=== PATIENT | male | born 1950 | race Caucasian/White ===

== ENCOUNTER 2019-05-12 17:34 | Inpatient (IN) | payer OTHER ==
[~2019-05-12] VITALS: Ht 180.3 cm; Wt 52.1 kg
--- NOTE | 2019-05-12 18:38 | NUR ---
No detectable dorsalis pedis or posterior tibial pulse detected by doppler by two different nurses. Dr. Dockery notified.
[2019-05-12] MEDS ORDERED: morphine 2 MG/ML inj. syringe IV PRN (19:05)
[2019-05-12 19:38] LABS: BASOPHILS # (AUTO) 0.1 X10'3 (0-0.2); BASOPHILS % (AUTO) 0.8 % (0-1); EOSINOPHILS # (AUTO) 0.2 X10'3 (0-0.9); EOSINOPHILS % (AUTO) 2.5 % (0-6); HEMATOCRIT 34.7 % (42.0-52.0); HEMOGLOBIN 11.7 g/dl (14.0-17.9); LYMPHOCYTES # (AUTO) 1.4 X10'3 (1.1-4.8); LYMPHOCYTES % (AUTO) 14.8 % (21-51); MEAN CORPUSCULAR HEMOGLOBIN 31.1 PG (27.0-31.0); MEAN CORPUSCULAR HGB CONC 33.7 g/dL (33.0-36.5); MEAN CORPUSCULAR VOLUME 92.3 FL (78-98); MEAN PLATELET VOLUME 10.3 FL (7.4-10.4); MONOCYTES # (AUTO) 0.6 X10'3 (0-0.9); MONOCYTES % (AUTO) 6.4 % (2-12); NEUTROPHILS # (AUTO) 7.1 X10'3 (1.8-7.7); NEUTROPHILS % (AUTO) 75.5 % (42-75); PLATELET COUNT 128 X10'3 (140-440); RED BLOOD COUNT 3.76 X10'6 (4.70-6.10); WHITE BLOOD COUNT 9.4 X10'3 (4.5-11.0)
[2019-05-12 19:47] LABS: PARTIAL THROMBOPLASTIN TIME 27 SECONDS (22-32)
[2019-05-12 19:51] LABS: ALANINE AMINOTRANSFERASE 10 U/L (12-78); ALBUMIN 3.2 G/DL (3.4-5.0); ALBUMIN/GLOBULIN RATIO 0.9 (1.1-1.5); ALKALINE PHOSPHATASE 97 IU/L (46-116); ANION GAP 9 (8-16); ASPARTATE AMINO TRANSFERASE 18 U/L (10-37); BILIRUBIN,TOTAL 0.7 MG/DL (0.1-1.0); BLOOD UREA NITROGEN 16 MG/DL (7-18); CALCIUM 9.2 MG/DL (8.5-10.1); CHLORIDE 105 MMOL/L (99-107); CREATININE 1.33 MG/DL (0.60-1.10); GLUCOSE 98 MG/DL (70-104); POTASSIUM 4.1 MMOL/L (3.5-5.1); SODIUM 139 MMOL/L (135-145); TOTAL CARBON DIOXIDE 25.4 MMOL/L (24-32); TOTAL PROTEIN 6.8 G/DL (6.4-8.2); eGFR 53 ML/MIN
--- NOTE | 2019-05-12 21:00 | NUR ---
Spoke to Dr. Dockery about lactic acid level and possible need for fluids. She states she will re-evaluate the patient and place orders if necessary.
--- NOTE | 2019-05-12 21:18 | NUR ---
sewing pattern layout technician at bedside .
[2019-05-12] MEDS ORDERED: heparin 10,000 units/1 ML INJ IV ONE (22:25)
[2019-05-12] MEDS ORDERED: OXYC-658 PO (22:26)
[2019-05-12] MEDS ORDERED: OMEP40CA13 PO (22:26)
[2019-05-12] MEDS ORDERED: ATEN-169 PO (22:26)
[2019-05-12] MEDS ORDERED: iohexol 350MG/ML 100ml bottle IV ONE (22:32)
[2019-05-12] MEDS: heparin 25,000 UNIT/250ml bag 250 ML IV SCH (22:47)
--- NOTE | 2019-05-12 22:51 | NUR ---
Pt en route to CT via w/c.
--- NOTE | 2019-05-13 00:08 | NUR ---
Per Dr. Johnson, will re-eval for pt to eat depending on CT results. Pt updated on plan of care. No acute distress noted.
[2019-05-13] MEDS ORDERED: normal saline 1000ML IV soln IVB ONE (00:45)
[2019-05-13] MEDS ORDERED: heparin 10,000 units/1 ML INJ IV PRN (01:20)
[2019-05-13] MEDS ORDERED: magnesium hydroxide 30ml (MOM) UD suspension PO PRN (01:20)
[2019-05-13] MEDS ORDERED: acetaminophen 325mg tablet PO PRN ×2 (01:20)
[2019-05-13] MEDS ORDERED: mag hydrox/Alum hydrox/simeth 30ml oral suspension PO PRN (01:20)
[2019-05-13] MEDS ORDERED: ondansetron/PF 4mg/2ml inj IV PRN (01:20)
[2019-05-13] MEDS ORDERED: heparin 25,000 UNIT/250ml bag 250 ML IV SCH (01:20)
--- NOTE | 2019-05-13 02:17 | NUR ---
No additional troponins per Dr. Johnson. Troponins cancelled.
[2019-05-13] MEDS: oxyCODONE IR 5mg (immed. release) tablet PO PRN ×3 (03:26→19:22)
[2019-05-13 03:52] VITALS: BP 139/97
[2019-05-13 05:59] LABS: BASOPHILS # (AUTO) 0.2 X10'3 (0-0.2); HEMATOCRIT 32.5 % (42.0-52.0); LYMPHOCYTES # (AUTO) 1.3 X10'3 (1.1-4.8); MEAN CORPUSCULAR HGB CONC 33.7 g/dL (33.0-36.5); MONOCYTES # (AUTO) 0.7 X10'3 (0-0.9)
[2019-05-13 06:03] LABS: BASOPHILS % (AUTO) 1.8 % (0-1); EOSINOPHILS # (AUTO) 0.2 X10'3 (0-0.9); EOSINOPHILS % (AUTO) 1.8 % (0-6); LYMPHOCYTES % (AUTO) 13.4 % (21-51); MEAN PLATELET VOLUME 11.1 FL (7.4-10.4); MONOCYTES % (AUTO) 7.2 % (2-12); NEUTROPHILS # (AUTO) 7.1 X10'3 (1.8-7.7); NEUTROPHILS % (AUTO) 75.8 % (42-75); PLATELET COUNT 124 X10'3 (140-440); RED BLOOD COUNT 3.53 X10'6 (4.70-6.10); WHITE BLOOD COUNT 9.3 X10'3 (4.5-11.0)
--- NOTE | 2019-05-13 06:16 | NUR ---
Problems reprioritized. Patient report given, questions answered & plan of care reviewed with MUMTAZ Mcallister. Addendum: 05/13/19 at 0617 by Clari Flores RN Amended: Links added.
--- NOTE | 2019-05-13 06:16 | NUR ---
Patient in room [facility] 349. I have received report from MUMTAZ Montague and had the opportunity to ask questions and assume patient care.
--- NOTE | 2019-05-13 06:40 | NUR ---
Patient in room [facility] 349. I have received report from Clari and had the opportunity to ask questions and assume patient care.
--- NOTE | 2019-05-13 06:47 | NUR ---
Heparin gtt turned off. Will resume in 120mins at a decreased rate per protocol. Dr. Godinez notified.
[2019-05-13 07:00] VITALS: BP_SYST 100; BP_SYST 189; BP_DIAS 129; BP_DIAS 44
--- NOTE | 2019-05-13 07:04 | NUR ---
Pt blood pressure at 0700 was 189/129. Pt has not taken BP med since he has been admitted. called [facility]. In the ER he was in his 130's and 140's. Pt was was not in distress, had no complains of pain and went back to sleep after vital signs were taken. Dr. Johnson said that he would change his BP dosage for the day and was not concern since his BP is a chronic issue and not acute.
[2019-05-13 07:06] LABS: LARGE PLATELETS FEW; PLATELET ESTIMATE DECREASED
[2019-05-13] MEDS: normal saline 1000ml 1,000 ML IV SCH ×3 (08:28→20:33)
[2019-05-13] MEDS: pantoprazole 40mg Tablet.DR PO SCH (08:29)
[2019-05-13] MEDS: aspirin 81mg tablet.DR PO SCH (08:29)
[2019-05-13] MEDS: atorvastatin 20mg tablet PO SCH (08:29)
[2019-05-13] MEDS: heparin 25,000 UNIT/250ml bag 250 ML IV SCH ×2 (08:56→13:32)
--- NOTE | 2019-05-13 08:59 | NUR ---
heparin drip resumed at 400 units/hr. Will recheck aPTT in 2 hours.
--- NOTE | 2019-05-13 10:57 | NUR ---
Spoke to Dr. Murray to clarify order for PTT. Dr. Murray wants DVT PTT ordered or not Cardiac PTT.
[2019-05-13] MEDS ORDERED: metoprolol tartrate 1mg/ml inj IV PRN (12:45)
[2019-05-13] MEDS ORDERED: nitroGLYCERIN 0.4mg SUBLingual tab SL PRN (12:45)
[2019-05-13] MEDS ORDERED: regadenoson 0.4mg/5ml syringe IV PRN (12:45)
[2019-05-13] MEDS ORDERED: heparin 10,000 units/1 ML INJ IV ONE (12:45)
[2019-05-13] MEDS ORDERED: aminophylline 250mg/10ml inj. IV PRN (12:45)
[2019-05-13 12:46] VITALS: BP 128/91
[2019-05-13] MEDS: heparin 10,000 units/1 ML INJ IV PRN (13:30)
--- NOTE | 2019-05-13 14:18 | NUR ---
Pt with low BMI of 16.3 seen at bedside. Pt reports UBW 120 lbs, current documented wt is 117 lbs. Pt currently 98% UBW. Pt states his weight fluctuates and doesn't express concern for any recent wt loss at this time. Pt endorses a good appetite, currently on heart healthy diet documented with 25% PO intake at breakfast this morning. Breakfast tray present during RD visited, noted that pt consumed all of the eggs and most of the sides except for Slovenian toast, likely more than 25% consumed. Patient with evident muscle wasting in clavicle area, no significant decrease in muscle strength, and no edema. Pt currently does not meet criteria for malnutrition. Pt requests more seasoning to add flavor to food, pt agrees to salsa with breakfast and extra seasoning packets TID. Pt also agrees to cottage cheese with dinners, double eggs at breakfast, and double meat BIDLD and states he dislikes peas. All food preferences d/t dietary. Pt provided with written alternative heart healthy menu to provide additional food options and RD contact information. Will remain available. Addendum: 05/13/19 at [address] Amended: Links added.
--- NOTE | 2019-05-13 17:48 | NUR ---
Student documentation: I have reviewed and agree with all interventions, assessments performed and documented by Sn Mark Student Medication Administration: For this medication-pass time frame, all medication were reviewed, dispensed, administered and documented per hospital policy by SN Mark.
--- NOTE | 2019-05-13 18:11 | NUR ---
Received report from MUMTAZ Mcallister. Patient is awake and alert on room air, in no apparent distress. Call light and items of frequent use within reach. Will continue to monitor.
--- NOTE | 2019-05-13 18:35 | NUR ---
Problems reprioritized. Patient report given, questions answered & plan of care reviewed with Mariia.
[2019-05-13 20:00] VITALS: BP 146/89
[2019-05-13] MEDS: atenolol 25mg tablet PO SCH (20:31)
--- NOTE | 2019-05-13 20:48 | NUR ---
PTT result came back to be 52 seconds. No rate change needed.
[2019-05-14] VITALS (12 sets, daily range): BP systolic 143–180; BP diastolic 84–129
[2019-05-14 02:11] LABS: BASOPHILS # (AUTO) 0.2 X10'3 (0-0.2); EOSINOPHILS # (AUTO) 0.3 X10'3 (0-0.9); MEAN PLATELET VOLUME 10.4 FL (7.4-10.4); MONOCYTES # (AUTO) 0.8 X10'3 (0-0.9); WHITE BLOOD COUNT 9.3 X10'3 (4.5-11.0)
[2019-05-14 02:13] LABS: BASOPHILS % (AUTO) 2.6 % (0-1); EOSINOPHILS % (AUTO) 2.8 % (0-6); HEMATOCRIT 34.4 % (42.0-52.0); HEMOGLOBIN 11.7 g/dl (14.0-17.9); LYMPHOCYTES # (AUTO) 1.8 X10'3 (1.1-4.8); MEAN CORPUSCULAR HEMOGLOBIN 31.2 PG (27.0-31.0); MEAN CORPUSCULAR HGB CONC 34.2 g/dL (33.0-36.5); MEAN CORPUSCULAR VOLUME 91.4 FL (78-98); MONOCYTES % (AUTO) 8.3 % (2-12); NEUTROPHILS # (AUTO) 6.2 X10'3 (1.8-7.7); NEUTROPHILS % (AUTO) 67.3 % (42-75); PLATELET COUNT 120 X10'3 (140-440); RED BLOOD COUNT 3.76 X10'6 (4.70-6.10); RED CELL DISTRIBUTION WIDTH 16.9 % (11.5-14.5)
[2019-05-14 02:22] LABS: ALBUMIN 2.8 G/DL (3.4-5.0); ANION GAP 7 (8-16); BLOOD UREA NITROGEN 13 MG/DL (7-18); BUN/CREATININE RATIO 12.5 (5.4-32.0); CALCIUM 8.9 MG/DL (8.5-10.1); CHLORIDE 107 MMOL/L (99-107); CHOL/HDL RATIO 1.6 (0.00-4.99); CHOLESTEROL 88 MG/DL (0-200); CREATININE 1.04 MG/DL (0.60-1.10); GLUCOSE 106 MG/DL (70-104); HDL CHOLESTEROL 56 MG/DL (35-60); LDL CHOLESTEROL 31 MG/DL (50-100); POTASSIUM 4.3 MMOL/L (3.5-5.1); SODIUM 136 MMOL/L (135-145); TOTAL CARBON DIOXIDE 22.5 MMOL/L (24-32); TRIGLYCERIDES 31 MG/DL (20-135); eGFR 70 ML/MIN
[2019-05-14] MEDS: normal saline 1000ml 1,000 ML IV SCH ×3 (02:23→17:20)
[2019-05-14] MEDS: heparin 10,000 units/1 ML INJ IV PRN ×2 (02:31→20:40)
[2019-05-14] MEDS: heparin 25,000 UNIT/250ml bag 250 ML IV SCH ×2 (02:35→20:39)
[2019-05-14 02:38] LABS: TOTAL CELLS COUNTED 100
[2019-05-14 02:39] LABS: ANISOCYTOSIS 1+; BURR CELLS 1+; ELLIPTOCYTES 1+; PLATELET ESTIMATE DECREASED
[2019-05-14] MEDS: oxyCODONE IR 5mg (immed. release) tablet PO PRN ×3 (02:55→18:18)
--- NOTE | 2019-05-14 06:40 | NUR ---
Patient in room [facility] 349. I have received report from Mariia and had the opportunity to ask questions and assume patient care.
[2019-05-14] MEDS: aspirin 81mg tablet.DR PO SCH (08:00)
[2019-05-14] MEDS: atorvastatin 20mg tablet PO SCH (08:02)
[2019-05-14] MEDS: pantoprazole 40mg Tablet.DR PO SCH (08:02)
[2019-05-14] MEDS ORDERED: midazolam 2 mg/2 ml injection ONE ×2 (09:09→09:57)
[2019-05-14] MEDS ORDERED: LIDOcaine 1%/PF 5ML 10 MG/ML VIAL ONE (09:09)
[2019-05-14] MEDS ORDERED: heparin 1,000 UNITS/NS 500ml 500 ML ONE (09:10)
[2019-05-14] MEDS ORDERED: fentaNYL/PF 50MCG/1 ML 2ML syringe ONE ×2 (09:10→09:57)
[2019-05-14] MEDS ORDERED: iohexol 300mg/ml 100ml inj. ONE (09:10)
--- NOTE | 2019-05-14 09:33 | NUR ---
PATIENT DOWN TO IR.
--- NOTE | 2019-05-14 11:00 | NUR ---
Patient returned to room 349b with x2 staff via [employer]. Patient transferred back to bed . Left groin puncture site has dressing that has circled shadowing. Site is soft, no hematoma noted. Post procedure vitals initiated. Will continue to monitor. Addendum: 05/14/19 at 1336 by Ary Mendiola RN Patient returned to room with heparin gtt turned off. Per report from MUMTAZ Kirkland and MUMTAZ Galvez, Dr. Yost wanted to remain off for x8 hours, recheck ptt and then continue heparin gtt.
--- NOTE | 2019-05-14 11:00 | NUR ---
patient came back from . Puncture site has no sign of hematoma and it is soft. He is stable and is laying flat for 6 hours. Heparin drip has stopped. right foot doppler only found on post tibial. Left foot found pulse with doppler on post tibiaal and dorsalis pedis.
--- NOTE | 2019-05-14 14:56 | NUR ---
Unable to locate patient right posterior tibial pulse with doppler, this morning was able to. Patients right LE also cooler than was this morning. Dr. Murray called and paged. Notified IR RN, scot Galvez who stated she was unable to locate with doppler pulses to right posterior tibial and right dorsalis pedis for IR procedure as well, "it's not a change for us" and advised to notify Dr. Zhang. Dr. Zhang called and he stated to "have IR look at him." IR called again. Leonor and MARCELO Kirkland RN's came to floor with IR doppler and was able to located right posterior tibial pulse with doppler. Location marked with "x" DR Murray notified of this. Will continue to monitor.
--- NOTE | 2019-05-14 16:01 | NUR ---
Patient's BP 172/108. No BP meds due at this time. Dr. Murray notified.
[2019-05-14] MEDS ORDERED: hydrALAZINE 20mg/ml inj. IV ONE (16:35)
--- NOTE | 2019-05-14 18:13 | NUR ---
Problems reprioritized. Patient report given, questions answered & plan of care reviewed with Denise.
--- NOTE | 2019-05-14 18:21 | NUR ---
Problems reprioritized. Patient report given, questions answered & plan of care reviewed with MUMTAZ Jain.
--- NOTE | 2019-05-14 18:22 | NUR ---
Student documentation: I have reviewed and agree with all interventions, assessments performed and documented by SN Tania. Student Medication Administration: For this medication-pass time frame, all medication were reviewed, dispensed, administered and documented per hospital policy by sn tania.
--- NOTE | 2019-05-14 18:42 | NUR ---
Patient in room [facility] 349. I have received report from MUMTAZ Murry and had the opportunity to ask questions and assume patient care. Addendum: 05/14/19 at 1842 by Denise Burleson RN Amended: Links added.
[2019-05-14] MEDS: atenolol 25mg tablet PO SCH (20:45)
--- NOTE | 2019-05-14 23:34 | NUR ---
called Dr. Garcia with regards to patient high blood pressure, did not order anything and stated to f/u with day time hospitalist.
[2019-05-15] VITALS: BP 159/104
[2019-05-15 02:53] LABS: BASOPHILS # (AUTO) 0.2 X10'3 (0-0.2); BASOPHILS % (AUTO) 1.5 % (0-1); EOSINOPHILS # (AUTO) 0.2 X10'3 (0-0.9); HEMATOCRIT 36.3 % (42.0-52.0); HEMOGLOBIN 12.1 g/dl (14.0-17.9); LYMPHOCYTES % (AUTO) 16.1 % (21-51); MEAN CORPUSCULAR HEMOGLOBIN 30.8 PG (27.0-31.0); MEAN CORPUSCULAR HGB CONC 33.3 g/dL (33.0-36.5); MEAN CORPUSCULAR VOLUME 92.5 FL (78-98); MEAN PLATELET VOLUME 10.7 FL (7.4-10.4); MONOCYTES # (AUTO) 1.3 X10'3 (0-0.9); MONOCYTES % (AUTO) 10.4 % (2-12); NEUTROPHILS # (AUTO) 8.6 X10'3 (1.8-7.7); PLATELET COUNT 118 X10'3 (140-440); RED BLOOD COUNT 3.92 X10'6 (4.70-6.10); RED CELL DISTRIBUTION WIDTH 16.7 % (11.5-14.5); WHITE BLOOD COUNT 12.2 X10'3 (4.5-11.0)
[2019-05-15 03:03] LABS: ANION GAP 9 (8-16); CALCIUM 8.7 MG/DL (8.5-10.1); CHLORIDE 107 MMOL/L (99-107); CREATININE 1.25 MG/DL (0.60-1.10); GLUCOSE 121 MG/DL (70-104); POTASSIUM 4.5 MMOL/L (3.5-5.1); SODIUM 138 MMOL/L (135-145); TOTAL CARBON DIOXIDE 22.4 MMOL/L (24-32); eGFR 57 ML/MIN
[2019-05-15] MEDS: normal saline 1000ml 1,000 ML IV SCH ×5 (03:03→23:20)
[2019-05-15] MEDS: oxyCODONE IR 5mg (immed. release) tablet PO PRN ×3 (03:05→21:28)
[2019-05-15] MEDS: heparin 25,000 UNIT/250ml bag 250 ML IV SCH ×4 (03:07→09:23)
[2019-05-15 03:13] LABS: BLOOD UREA NITROGEN 14 MG/DL (7-18); BUN/CREATININE RATIO 11.2 (5.4-32.0)
[2019-05-15 03:44] LABS: LARGE PLATELETS FEW; PLATELET ESTIMATE DECREASED
[2019-05-15 06:30] VITALS: BP 129/81
--- NOTE | 2019-05-15 06:30 | NUR ---
Patient in room [facility] 349. I have received report from Padma Arauz RN and had the opportunity to ask questions and assume patient care.
--- NOTE | 2019-05-15 06:35 | NUR ---
Problems reprioritized. Patient report given, questions answered & plan of care reviewed with MUMTAZ MORALES. Addendum: 05/15/19 at 0635 by Denise Burleson RN Amended: Links added.
[2019-05-15 07:41] VITALS: BP 144/89
[2019-05-15] MEDS: aspirin 81mg tablet.DR PO SCH (07:59)
[2019-05-15] MEDS: atorvastatin 20mg tablet PO SCH (07:59)
[2019-05-15] MEDS: pantoprazole 40mg Tablet.DR PO SCH (07:59)
[2019-05-15] MEDS: HYDROcodone/acetaminophen 5mg/325mg tablet PO PRN (08:00)
[2019-05-15 08:01] LABS: ANISOCYTOSIS 1+
[2019-05-15] MEDS: heparin 10,000 units/1 ML INJ IV PRN (09:18)
[2019-05-15 11:00] VITALS: BP 156/95
--- NOTE | 2019-05-15 13:40 | NUR ---
Student documentation: I have reviewed all interventions, assessments performed and documented by .
[2019-05-15] MEDS ORDERED: nitroGLYCERIN 0.4mg SUBLingual tab SL PRN (14:00)
[2019-05-15] MEDS ORDERED: aminophylline 250mg/10ml inj. IV PRN (14:00)
[2019-05-15] MEDS ORDERED: metoprolol tartrate 1mg/ml inj IV PRN (14:00)
[2019-05-15] MEDS ORDERED: regadenoson 0.4mg/5ml syringe IV ONE (14:00)
[2019-05-15 18:00] VITALS: BP 177/113
--- NOTE | 2019-05-15 18:30 | NUR ---
Problems reprioritized. Patient report given, questions answered & plan of care reviewed with Scooter PANDYA.
--- NOTE | 2019-05-15 18:31 | NUR ---
Patient in room [facility] 349. I have received report from MUMTAZ Castillo and had the opportunity to ask questions and assume patient care.
[2019-05-15] MEDS: atenolol 25mg tablet PO SCH (21:28)
--- NOTE | 2019-05-15 22:57 | NUR ---
Patient's BP at 1800 was 177/113, pt was given scheduled atenolol. Upon recheck his BP was 135/100. The doctor was notified and does not wish to do anything at this time.
[2019-05-16] VITALS (15 sets, daily range): BP systolic 135–163; BP diastolic 98–121
[2019-05-16 02:46] LABS: BASOPHILS # (AUTO) 0.2 X10'3 (0-0.2); EOSINOPHILS # (AUTO) 0.2 X10'3 (0-0.9); EOSINOPHILS % (AUTO) 2.5 % (0-6); HEMATOCRIT 33.3 % (42.0-52.0); HEMOGLOBIN 11.3 g/dl (14.0-17.9); LYMPHOCYTES # (AUTO) 1.7 X10'3 (1.1-4.8); LYMPHOCYTES % (AUTO) 20.7 % (21-51); MEAN CORPUSCULAR HEMOGLOBIN 30.8 PG (27.0-31.0); MEAN CORPUSCULAR HGB CONC 33.9 g/dL (33.0-36.5); MEAN CORPUSCULAR VOLUME 90.9 FL (78-98); MEAN PLATELET VOLUME 10.8 FL (7.4-10.4); MONOCYTES # (AUTO) 0.8 X10'3 (0-0.9); MONOCYTES % (AUTO) 9.5 % (2-12); NEUTROPHILS # (AUTO) 5.4 X10'3 (1.8-7.7); NEUTROPHILS % (AUTO) 65.3 % (42-75); PLATELET COUNT 110 X10'3 (140-440); RED BLOOD COUNT 3.66 X10'6 (4.70-6.10); RED CELL DISTRIBUTION WIDTH 16.6 % (11.5-14.5); WHITE BLOOD COUNT 8.3 X10'3 (4.5-11.0)
[2019-05-16 02:56] LABS: ALBUMIN 2.7 G/DL (3.4-5.0); ANION GAP 8 (8-16); BLOOD UREA NITROGEN 17 MG/DL (7-18); BUN/CREATININE RATIO 14.2 (5.4-32.0); CALCIUM 9.1 MG/DL (8.5-10.1); CHLORIDE 106 MMOL/L (99-107); GLUCOSE 96 MG/DL (70-104); POTASSIUM 4.3 MMOL/L (3.5-5.1); SODIUM 137 MMOL/L (135-145); TOTAL CARBON DIOXIDE 23.5 MMOL/L (24-32); eGFR 60 ML/MIN
[2019-05-16] MEDS: normal saline 1000ml 1,000 ML IV SCH ×5 (05:30→22:45)
--- NOTE | 2019-05-16 06:00 | NUR ---
Patient in room [facility] 349. I have received report from Scooter PANDYA and had the opportunity to ask questions and assume patient care.
--- NOTE | 2019-05-16 06:27 | NUR ---
Problems reprioritized. Patient report given, questions answered & plan of care reviewed with MUMTAZ Aponte.
[2019-05-16] MEDS: atorvastatin 20mg tablet PO SCH (07:25)
[2019-05-16] MEDS: pantoprazole 40mg Tablet.DR PO SCH (07:25)
[2019-05-16] MEDS: oxyCODONE IR 5mg (immed. release) tablet PO PRN ×3 (07:27→22:43)
[2019-05-16] MEDS: aspirin 81mg tablet.DR PO SCH (07:32)
--- NOTE | 2019-05-16 14:40 | NUR ---
Ramos LOPEZ regarding pt. stating he plans to go home after Mere-scan done. PAGER ID: [phone] MESSAGE: [phone]; Dwayne Colon. Pt. will be going to Mere-scan today. Pt. states he plans on going home right after Mere-scan procedure is complete. Pls. advise. Maribel [phone]
--- NOTE | 2019-05-16 14:41 | NUR ---
MD advised to ask pt. if he is willing to wait for stress test result so that appropriate medications can be prescribed if patient still chooses to go home after jose-scan is complete. Will follow up.
--- NOTE | 2019-05-16 14:45 | NUR ---
Follow up with MD regarding patient response. PAGER ID: [phone] MESSAGE: [phone]; Brooke Colon Pt. willing to wait for stress test results and new prescriptions then would like to be DC'd home. Is a [facility] patient GISELA López [phone]
[2019-05-16] MEDS ORDERED: aminophylline inj. 10 ML IV ONE (15:05)
--- NOTE | 2019-05-16 18:54 | NUR ---
Problems reprioritized. Patient report given, questions answered & plan of care reviewed with Prudence RN.
[2019-05-16] MEDS: heparin 25,000 UNIT/250ml bag 250 ML IV SCH (19:33)
[2019-05-16] MEDS: atenolol 25mg tablet PO SCH (21:28)
[2019-05-17] VITALS (15 sets, daily range): BP systolic 120–149; BP diastolic 84–100
[2019-05-17 01:54] LABS: BASOPHILS # (AUTO) 0.1 X10'3 (0-0.2); BASOPHILS % (AUTO) 1.6 % (0-1); EOSINOPHILS # (AUTO) 0.2 X10'3 (0-0.9); EOSINOPHILS % (AUTO) 2.5 % (0-6); HEMOGLOBIN 10.5 g/dl (14.0-17.9); LYMPHOCYTES # (AUTO) 1.6 X10'3 (1.1-4.8); LYMPHOCYTES % (AUTO) 17.4 % (21-51); MEAN CORPUSCULAR HEMOGLOBIN 31.2 PG (27.0-31.0); MEAN CORPUSCULAR HGB CONC 33.7 g/dL (33.0-36.5); MEAN CORPUSCULAR VOLUME 92.4 FL (78-98); MEAN PLATELET VOLUME 11.1 FL (7.4-10.4); MONOCYTES # (AUTO) 0.8 X10'3 (0-0.9); MONOCYTES % (AUTO) 8.6 % (2-12); NEUTROPHILS # (AUTO) 6.4 X10'3 (1.8-7.7); NEUTROPHILS % (AUTO) 69.9 % (42-75); PLATELET COUNT 101 X10'3 (140-440); RED BLOOD COUNT 3.36 X10'6 (4.70-6.10); RED CELL DISTRIBUTION WIDTH 16.5 % (11.5-14.5); WHITE BLOOD COUNT 9.2 X10'3 (4.5-11.0)
[2019-05-17 02:10] LABS: ALBUMIN 2.5 G/DL (3.4-5.0); ANION GAP 8 (8-16); BLOOD UREA NITROGEN 16 MG/DL (7-18); BUN/CREATININE RATIO 13.6 (5.4-32.0); CALCIUM 8.3 MG/DL (8.5-10.1); CHLORIDE 105 MMOL/L (99-107); CREATININE 1.18 MG/DL (0.60-1.10); GLUCOSE 110 MG/DL (70-104); POTASSIUM 3.9 MMOL/L (3.5-5.1); SODIUM 136 MMOL/L (135-145); TOTAL CARBON DIOXIDE 23.5 MMOL/L (24-32); eGFR 61 ML/MIN
[2019-05-17] MEDS: heparin 25,000 UNIT/250ml bag 250 ML IV SCH (02:27)
[2019-05-17] MEDS: oxyCODONE IR 5mg (immed. release) tablet PO PRN ×3 (03:04→19:55)
[2019-05-17] MEDS: normal saline 1000ml 1,000 ML IV SCH ×3 (05:20→19:36)
--- NOTE | 2019-05-17 06:30 | NUR ---
Problems reprioritized. Patient report given, questions answered & plan of care reviewed with Eduarda PANDYA.
[2019-05-17] MEDS: aspirin 81mg tablet.DR PO SCH (07:43)
[2019-05-17] MEDS: pantoprazole 40mg Tablet.DR PO SCH (07:46)
[2019-05-17] MEDS: atorvastatin 20mg tablet PO SCH (07:47)
--- NOTE | 2019-05-17 08:39 | NUR ---
No doppler pulses of right foot or tibia found on morning assessment. Dr Zhang notified, he was aware that this was an issue 2 days ago as well, so it is not a new problem. Foot is fairly warm, blanchable but purple in color with a slow cap refill. Dr Zhang was unsure if surgery would be safe for him and is not periodontist today so referred him to Dr Oneal who is oncall but also Dr Hurd for vascular back up. No new pain or discomfort per patient. I talked to Dr Oneal about the case and he referred me to Dr Hurd. Message left for Dr Hurd, awaiting call back.
[2019-05-17] MEDS ORDERED: LIDOcaine 1% (10mg/ml) 2ml vial ONE (11:33)
[2019-05-17] MEDS ORDERED: heparin 10,000 units/1 ML INJ ONE (11:33)
[2019-05-17] MEDS ORDERED: ceFOXitin 2 GM ADDvantage bag 100 ML IV ONE (11:55)
[2019-05-17] MEDS ORDERED: sevoflurane 250ml liquid IH ONE (11:56)
[2019-05-17] MEDS ORDERED: fentaNYL /PF 50mcg/ml 5ml ampule ONE (12:00)
[2019-05-17] MEDS ORDERED: midazolam 2 mg/2 ml injection ONE (12:00)
[2019-05-17] MEDS ORDERED: propofol inj 20 ML IV ONE (12:01)
[2019-05-17] MEDS ORDERED: rocuronium 10mg/ml inj IV ONE (12:01)
[2019-05-17] MEDS ORDERED: ceFAZolin 1000mg inj ONE ×2 (12:37)
[2019-05-17] MEDS ORDERED: ringers solution, lacted 1,000 ML IV SCH (13:12)
--- NOTE | 2019-05-17 13:14 | NUR ---
REPORT GIVEN TO ICU REEMA RN. UNABLE TO GET AHOLD OF RECOVERY ROOM FOR REPORT, WILL CONTINUE TO TRY. PT WAS TAKEN TO OR @ 1200. BLOOD SUGAR/BLOOD PRESSURE STABLE. DR SEGAL WAS ABLE TO ANSWER ALL QUESTIONS FOR PT BEFORE HE WAS TAKE TO OR.
[2019-05-17] MEDS ORDERED: morphine 4 MG/ML inj SYRINge IV PRN ×2 (13:15)
[2019-05-17] MEDS ORDERED: proCHLORperazine 10 MG/2 ml inj IV PRN (13:15)
[2019-05-17] MEDS ORDERED: ondansetron/PF 4mg/2ml inj IV PRN (13:15)
[2019-05-17] MEDS ORDERED: meperidine/PF 25mg/ml syringe IV PRN ×3 (13:15)
[2019-05-17] MEDS ORDERED: albumin (Human) 5% 250ml 250 ML IV ONE ×2 (13:44→15:07)
[2019-05-17] MEDS ORDERED: protamine sulfate 10mg/ml inj. ONE (15:25)
[2019-05-17] MEDS ORDERED: NORMAL SALINE IV ONE (16:00)
[2019-05-17] MEDS ORDERED: DESMOPRESSIN IV ONE (16:00)
[2019-05-17] MEDS ORDERED: heparin 1,000unit/ml 10ml vial 10 ML ONE (16:20)
--- NOTE | 2019-05-17 16:32 | NUR ---
Received from OR via ICU BED , accompanied by Anesthesiologist LAYLA and report given by Anesthesiolgist. PATIENT WITH 20G PIV IN LEFT UE. SL. TRIPLE LUMEN CENTRAL LINE TO RIGHT NECK. VSS AT THIS TIME. MARITA LUCAS UPON ARRIVAL. LUCIA CATH PRESENT AND ATTACHED TO TEMP PROBE. CLEAR YELLOW URINE PRESENT IN ATRIUM. 200CC. RIGHT AND LEFT INGUINAL DRESSINGS/ PROVENAS MAINTAINING SUCTION AND NO OBVIOUS SIGNS OF LEAKAGE. PATIENT MEDICATED UPON ARRIVAL BY ANESTHESIA. Addendum: 05/17/19 at 1659 by Carrington Osuna RN, RN Amended: Links added.
[2019-05-17] MEDS ORDERED: amiodarone 150mg/dext, iso-os 100 ML IV ONE (17:15)
--- NOTE | 2019-05-17 17:25 | NUR ---
ALL CRITERIA FOR TRANSFER TO THE FLOOR HAS BEEN ACHIEVED. VSS. BED LOW, CALL LIGHT AND VS. SET IN PLACE. RN PRESENT TO ACCEPT CARE. PATIENT RESTING COMFORTABLY IN BED. BELONGINGS SENT WITH PATIENT. DRESSINGS CDI. MUMTAZ FRASER PRESENT FOR REPORT AND TO CONTINUE CARE FOLLOWING REPORT. DRESSINGS STILL INTACT TO BILAT INGUINALS ARE. BLOOD GLUCOSE WNL. REPORTED TO RN AND SHE ASSUMED CARE OF PATIENT. WILL HANG AMIODARONE ORDERED AND CHECK MAG. Addendum: 05/17/19 at 1727 by Carrington Becerril - MUMTAZ PANDYA Amended: Links added.
--- NOTE | 2019-05-17 17:30 | NUR ---
REPORT FROM RECOVERY- PT ALREADY IN ROOM IN 2012. PT RESTLESS. SITTING UP- WANTING TO PEE- REORIENTED- AFTER MANY TRY, PT AWAKENING MORE AND LESS RESTLESS. CORDS REARRANGED- ART LINE READING IMPROVING, SATS WHEN READING 96 BY MASK. BEAR HUGGER ON TEMP 32, NOW UP TO 34. AMIO BOLUS AND GTT STARTED- HR AFIB 140 TO 80.
[2019-05-17] MEDS: amiodarone/D5 360MG/200ML BAG 200 ML IV SCH (17:34)
--- NOTE | 2019-05-17 18:30 | NUR ---
Patient in room CICU 2013. I have received report from MUMTAZ Girard and had the opportunity to ask questions and assume patient care.
[2019-05-17] MEDS ORDERED: magnesium 4gm in 100ml NS 100 ML IV ONE (19:30)
[2019-05-17] MEDS: ceFOXitin 2 GM ADDvantage bag 100 ML IV SCH (20:11)
[2019-05-17] MEDS: atenolol 25mg tablet PO SCH (21:47)
[2019-05-18] VITALS (25 sets, daily range): BP systolic 105–154; BP diastolic 68–97
[2019-05-18] MEDS: amiodarone/D5 360MG/200ML BAG 200 ML IV SCH ×5 (00:19→22:26)
[2019-05-18] MEDS: oxyCODONE IR 5mg (immed. release) tablet PO PRN ×5 (00:19→19:47)
--- NOTE | 2019-05-18 01:05 | NUR ---
Vital signs charted at 0105 is the second 0100 hour vitals of the night due to day light savings. Addendum: 05/18/19 at 0150 by Lida Durham RN As well as I/O
[2019-05-18] MEDS ORDERED: albumin (Human) 5% 250ml 250 ML IV ONE ×4 (01:30)
--- NOTE | 2019-05-18 01:33 | NUR ---
MD Hurd notified that patient has not made urine the last couple hours and only made 10 cc the hour before that. Patient was bladder scanned and no urine was found to be in the bladder. MD order a liter of 5% albumin, will give and reassess patient urine output status.
[2019-05-18] MEDS: ceFOXitin 2 GM ADDvantage bag 100 ML IV SCH ×4 (01:52→21:08)
[2019-05-18] MEDS: normal saline 1000ml 1,000 ML IV SCH ×2 (04:15→08:56)
[2019-05-18 04:48] LABS: BASOPHILS # (AUTO) 0.1 X10'3 (0-0.2); BASOPHILS % (AUTO) 0.8 % (0-1); EOSINOPHILS % (AUTO) 0.3 % (0-6); HEMATOCRIT 24.4 % (42.0-52.0); LYMPHOCYTES # (AUTO) 0.7 X10'3 (1.1-4.8); LYMPHOCYTES % (AUTO) 5.8 % (21-51); MEAN CORPUSCULAR HEMOGLOBIN 30.7 PG (27.0-31.0); MEAN CORPUSCULAR VOLUME 93.2 FL (78-98); MEAN PLATELET VOLUME 9.5 FL (7.4-10.4); MONOCYTES # (AUTO) 1.1 X10'3 (0-0.9); MONOCYTES % (AUTO) 9.5 % (2-12); NEUTROPHILS # (AUTO) 9.7 X10'3 (1.8-7.7); NEUTROPHILS % (AUTO) 83.6 % (42-75); PLATELET COUNT 125 X10'3 (140-440); RED BLOOD COUNT 2.62 X10'6 (4.70-6.10); RED CELL DISTRIBUTION WIDTH 17.1 % (11.5-14.5); WHITE BLOOD COUNT 11.6 X10'3 (4.5-11.0)
[2019-05-18 05:01] LABS: ALBUMIN 3.7 G/DL (3.4-5.0); ANION GAP 15 (8-16); BLOOD UREA NITROGEN 15 MG/DL (7-18); BUN/CREATININE RATIO 10.6 (5.4-32.0); CALCIUM 8.3 MG/DL (8.5-10.1); CHLORIDE 106 MMOL/L (99-107); CREATININE 1.41 MG/DL (0.60-1.10); GLUCOSE 114 MG/DL (70-104); SODIUM 137 MMOL/L (135-145); TOTAL CARBON DIOXIDE 16.2 MMOL/L (24-32); eGFR 50 ML/MIN
[2019-05-18] MEDS ORDERED: furosemide 40mg/4ml inj IV ONE (05:30)
--- NOTE | 2019-05-18 05:30 | NUR ---
After liter of albumin, patient had 40cc of urine output. After this he did not make urine. MD Hurd was notified of this and of am labs and cvp in 20s. MD order 40 of lasix and to have sign language translator consult. Will give lasix and continue monitoring.
--- NOTE | 2019-05-18 05:51 | NUR ---
July Christine HUNTER has been notified of Vickey's desire for consultation on this patient.
--- NOTE | 2019-05-18 06:35 | NUR ---
Problems reprioritized. Patient report given, questions answered & plan of care reviewed with MUMTAZ Campuzano.
[2019-05-18 06:56] LABS: ALANINE AMINOTRANSFERASE 18 U/L (12-78); ALBUMIN/GLOBULIN RATIO 1.7 (1.1-1.5); ALKALINE PHOSPHATASE 58 IU/L (46-116); ASPARTATE AMINO TRANSFERASE 49 U/L (10-37); BILIRUBIN,DIRECT 0.6 MG/DL (0-0.3); BILIRUBIN,TOTAL 1.1 MG/DL (0.1-1.0); MAGNESIUM 2.7 MG/DL (1.5-2.4); PHOSPHORUS 3.4 MG/DL (2.3-4.5); TOTAL PROTEIN 5.9 G/DL (6.4-8.2)
[2019-05-18] MEDS: aspirin 81mg tablet.DR PO SCH (07:06)
[2019-05-18] MEDS: atorvastatin 20mg tablet PO SCH (07:08)
[2019-05-18] MEDS: pantoprazole 40mg Tablet.DR PO SCH (07:08)
[2019-05-18] MEDS: sodium bicarbonate (8.4%) inj. 100 MEQ in dextrose 5%-water 1,000 ML IV SCH ×3 (09:36→19:47)
--- NOTE | 2019-05-18 13:06 | NUR ---
Initial: Pt s/p distal revascularization receiving clear liquids 25-50% PO meals w/ double proteins prior to OR. LBM noted as 06/13; RD d/w RN who is rechecking w/ pt for accurate BM hx. Will monitor for diet advancement post-op and return to heart healthy diet. Colby pt prior preferences once solid meals. Pt with low BMI of 16.3 seen at bedside. Pt reports UBW 120 lbs, current documented wt is 117 lbs. Pt currently 98% UBW. Pt states his weight fluctuates and doesn't express concern for any recent wt loss at this time. Pt endorses a good appetite, currently on heart healthy diet documented with 25% PO intake at breakfast this morning. Breakfast tray present during RD visited, noted that pt consumed all of the eggs and most of the sides except for Slovak toast, likely more than 25% consumed. Patient with evident muscle wasting in clavicle area, no significant decrease in muscle strength, and no edema. Pt currently does not meet criteria for malnutrition. Pt requests more seasoning to add flavor to food, pt agrees to salsa with breakfast and extra seasoning packets TID. Pt also agrees to cottage cheese with dinners, double eggs at breakfast, and double meat BIDLD and states he dislikes peas. All food preferences d/t dietary. Pt provided with written alternative heart healthy menu to provide additional food options and RD contact information. Will remain available. Rec: 1. advance to heart healthy diet per 2. honor pt food preferences once returns to solid foods; see above 3. routine bowel care 4. weekly wts Addendum: 05/18/19 at [address] Amended: Links added.
--- NOTE | 2019-05-18 18:44 | NUR ---
Patient in room CICU 2012. I have received report from MUMTAZ Campuzano and had the opportunity to ask questions and assume patient care. Patient awake for bedside report and eating evening meal. Will continue to monitor closely.
[2019-05-18] MEDS: apixaban 5mg tablet PO SCH (19:46)
[2019-05-18] MEDS ORDERED: apixaban 5mg tablet PO SCH (20:00)
[2019-05-18] MEDS: atenolol 25mg tablet PO SCH (20:15)
--- NOTE | 2019-05-18 21:09 | NUR ---
Administration of cefoxitin 2 gm IV delayed due to incomplete administration of 1st of 3 bags to be administered. Will continue to monitor closely. Addendum: 05/18/19 at 2248 by Laurita Milan RN Powder ABx was not diluted/mixed into IVF prior to administration for 1st dose. residence hall director, Brian made aware.
[2019-05-18] MEDS ORDERED: furosemide 20 MG/2 ML vial IV SCH (22:05)
[2019-05-18 23:00] LABS: CLARITY,URINE CLOUDY (Clear); COLOR,URINE YELLOW (Yellow); GLUCOSE, URINE NEGATIVE (Neg); KETONES,URINE NEGATIVE (Neg); LEUKOCYTE ESTERASE ,URINE TRACE (Neg); NITRITES, URINE NEGATIVE (Neg); OCCULT BLOOD,URINE LARGE (Neg); PH,URINE 5.5 (4.8-8.0); PROTEIN,URINE 100 mg/dl (Neg)
[2019-05-18 23:01] LABS: UA COLLECTION TYPE NON-SPECIFIED
[2019-05-18 23:05] LABS: BACTERIA,URINE FEW /HPF (Neg); RBC,URINE 50-100 /HPF (0-2); SQUAMOUS EPITHELIAL CELL,UR FEW /LPF (FEW); WBC,URINE 0-4 /HPF (0-4)
[2019-05-19] VITALS (23 sets, daily range): BP systolic 85–134; BP diastolic 52–97
[2019-05-19] MEDS: oxyCODONE IR 5mg (immed. release) tablet PO PRN ×4 (00:45→19:30)
[2019-05-19] MEDS: ceFOXitin 2 GM ADDvantage bag 100 ML IV SCH (02:09)
--- NOTE | 2019-05-19 04:30 | NUR ---
Informed NOC automation control technician regarding patient right prevena cartridge being full and will wait until Dr. Hurd is on for shift at 0700. Donovan, charge master coordinator informed, day charge informed and assessed site at change of shift. Abdomen firm to touch but per patient, this is normal.
[2019-05-19 04:48] LABS: BASOPHILS # (AUTO) 0.1 X10'3 (0-0.2); BASOPHILS % (AUTO) 0.7 % (0-1); EOSINOPHILS # (AUTO) 0.1 X10'3 (0-0.9); EOSINOPHILS % (AUTO) 0.5 % (0-6); HEMATOCRIT 23.1 % (42.0-52.0); HEMOGLOBIN 7.8 g/dl (14.0-17.9); LYMPHOCYTES # (AUTO) 0.9 X10'3 (1.1-4.8); LYMPHOCYTES % (AUTO) 7.4 % (21-51); MEAN CORPUSCULAR HEMOGLOBIN 31.2 PG (27.0-31.0); MEAN CORPUSCULAR HGB CONC 33.9 g/dL (33.0-36.5); MEAN CORPUSCULAR VOLUME 92.1 FL (78-98); MEAN PLATELET VOLUME 10.5 FL (7.4-10.4); MONOCYTES # (AUTO) 1.1 X10'3 (0-0.9); MONOCYTES % (AUTO) 8.8 % (2-12); NEUTROPHILS # (AUTO) 10.3 X10'3 (1.8-7.7); NEUTROPHILS % (AUTO) 82.6 % (42-75); PLATELET COUNT 90 X10'3 (140-440); RED BLOOD COUNT 2.51 X10'6 (4.70-6.10); RED CELL DISTRIBUTION WIDTH 17.3 % (11.5-14.5); WHITE BLOOD COUNT 12.4 X10'3 (4.5-11.0)
[2019-05-19 04:56] LABS: ALBUMIN 3.1 G/DL (3.4-5.0); ANION GAP 10 (8-16); BLOOD UREA NITROGEN 14 MG/DL (7-18); BUN/CREATININE RATIO 6.6 (5.4-32.0); CALCIUM 7.6 MG/DL (8.5-10.1); CHLORIDE 99 MMOL/L (99-107); CREATININE 2.12 MG/DL (0.60-1.10); GLUCOSE 152 MG/DL (70-104); MAGNESIUM 1.9 MG/DL (1.5-2.4); PHOSPHORUS 2.6 MG/DL (2.3-4.5); POTASSIUM 3.6 MMOL/L (3.5-5.1); SODIUM 131 MMOL/L (135-145); TOTAL CARBON DIOXIDE 21.6 MMOL/L (24-32); eGFR 31 ML/MIN
[2019-05-19 05:02] LABS: PARTIAL THROMBOPLASTIN TIME 44 SECONDS (22-32)
[2019-05-19] MEDS: amiodarone/D5 360MG/200ML BAG 200 ML IV SCH ×2 (05:36→07:29)
[2019-05-19] MEDS: furosemide 20 MG/2 ML vial IV SCH ×3 (06:00→22:06)
--- NOTE | 2019-05-19 06:48 | NUR ---
Problems reprioritized. Patient report given, questions answered & plan of care reviewed with Art, RN.
[2019-05-19] MEDS: sodium bicarbonate (8.4%) inj. 100 MEQ in dextrose 5%-water 1,000 ML IV SCH ×2 (07:19→17:52)
--- NOTE | 2019-05-19 07:37 | NUR ---
Page out to Dr. Angeles regarding the Provena suction system on Pt right leg being full.
--- NOTE | 2019-05-19 07:42 | NUR ---
Spoke with Dr. Angeles, wound care to be notified of need to change drain system. Call to wound care, they will come and change suction system.
[2019-05-19] MEDS: apixaban 5mg tablet PO SCH ×2 (07:58→20:55)
[2019-05-19] MEDS: pantoprazole 40mg Tablet.DR PO SCH (07:58)
[2019-05-19] MEDS: atorvastatin 20mg tablet PO SCH (07:58)
[2019-05-19] MEDS: aspirin 81mg tablet.DR PO SCH (07:59)
--- NOTE | 2019-05-19 08:00 | NUR ---
Wound care put hemovac on pt right groin
--- NOTE | 2019-05-19 14:46 | NUR ---
Pt Arterial line pulled without patient complaint. Pressure held for 5 minutes. Wound area dressed
--- NOTE | 2019-05-19 18:30 | NUR ---
ASSUMED CARE FROM MEREDITH RN AND ART RN NO QUESTIONS OR CONCERNS AFTER SBAR
[2019-05-19] MEDS: docusate sod 100mg capsule PO SCH (20:00)
[2019-05-19] MEDS: amiodarone 200mg tablet PO SCH (20:53)
--- NOTE | 2019-05-19 21:56 | NUR ---
PATIENT IN BED COVERS ON EYES CLOSED RR EVEN UN LABORED NO OBSERVABLE S/S OF ACUTE STRESS AT THIS TIME WILL CONTINUE TO OBSERVE
[2019-05-20] VITALS (23 sets, daily range): BP systolic 106–140; BP diastolic 60–106
--- NOTE | 2019-05-20 | NUR ---
PATIENT IN BED SUPINE WITH COVERS ON DENIES PAIN WHEN ASKED RR EVEN UN LABORED NO OBSERVABLE S/S OF ACUTE STRESS AT THIS TIME
[2019-05-20] MEDS: oxyCODONE IR 5mg (immed. release) tablet PO PRN ×4 (02:15→20:03)
--- NOTE | 2019-05-20 02:20 | NUR ---
patient in bed eyes closed rr even unlabored no observable s/s of acute stress at this time will continue to monitor
--- NOTE | 2019-05-20 04:29 | NUR ---
patient in bed getting labs drawn talking with document management specialist, rr even un labored no observable s/s of acute stress at this time will continue to monitor
[2019-05-20] MEDS: sodium bicarbonate (8.4%) inj. 100 MEQ in dextrose 5%-water 1,000 ML IV SCH (04:38)
[2019-05-20 05:03] LABS: BASOPHILS # (AUTO) 0.1 X10'3 (0-0.2); BASOPHILS % (AUTO) 0.6 % (0-1); EOSINOPHILS # (AUTO) 0.2 X10'3 (0-0.9); EOSINOPHILS % (AUTO) 1.3 % (0-6); HEMATOCRIT 25.5 % (42.0-52.0); HEMOGLOBIN 8.5 g/dl (14.0-17.9); LYMPHOCYTES % (AUTO) 6.7 % (21-51); MEAN CORPUSCULAR HEMOGLOBIN 30.7 PG (27.0-31.0); MEAN CORPUSCULAR HGB CONC 33.5 g/dL (33.0-36.5); MEAN CORPUSCULAR VOLUME 91.5 FL (78-98); MEAN PLATELET VOLUME 10.4 FL (7.4-10.4); MONOCYTES % (AUTO) 6.8 % (2-12); NEUTROPHILS # (AUTO) 12.8 X10'3 (1.8-7.7); NEUTROPHILS % (AUTO) 84.6 % (42-75); PLATELET COUNT 94 X10'3 (140-440); RED BLOOD COUNT 2.78 X10'6 (4.70-6.10); RED CELL DISTRIBUTION WIDTH 16.9 % (11.5-14.5); WHITE BLOOD COUNT 15.1 X10'3 (4.5-11.0)
[2019-05-20 05:47] LABS: ALBUMIN 2.9 G/DL (3.4-5.0); ANION GAP 7 (8-16); BLOOD UREA NITROGEN 11 MG/DL (7-18); BUN/CREATININE RATIO 7.7 (5.4-32.0); CALCIUM 7.5 MG/DL (8.5-10.1); CHLORIDE 92 MMOL/L (99-107); CREATININE 1.43 MG/DL (0.60-1.10); GLUCOSE 152 MG/DL (70-104); MAGNESIUM 1.6 MG/DL (1.5-2.4); PHOSPHORUS 1.5 MG/DL (2.3-4.5); SODIUM 128 MMOL/L (135-145); TOTAL CARBON DIOXIDE 29.2 MMOL/L (24-32); eGFR 49 ML/MIN
[2019-05-20] MEDS: furosemide 20 MG/2 ML vial IV SCH ×3 (06:04→22:59)
--- NOTE | 2019-05-20 06:26 | NUR ---
HAMILTON BOBO RN NO QUESTIONS OR CONCERNS FROM RN AFTER ASSUMING CARE
[2019-05-20] MEDS ORDERED: potassium Cl 20 mEq SR tablet PO PRN (06:30)
[2019-05-20] MEDS: docusate sod 100mg capsule PO SCH ×2 (08:00→19:58)
[2019-05-20] MEDS: atorvastatin 20mg tablet PO SCH (08:25)
[2019-05-20] MEDS: potassium Cl 20 mEq SR tablet PO PRN ×2 (08:25→12:51)
[2019-05-20] MEDS: pantoprazole 40mg Tablet.DR PO SCH (08:25)
[2019-05-20] MEDS: clopidogrel 75mg tablet PO SCH (08:25)
[2019-05-20] MEDS: aspirin 81mg tablet.DR PO SCH (08:25)
[2019-05-20] MEDS: amiodarone 200mg tablet PO SCH ×2 (08:25→19:58)
[2019-05-20] MEDS: normal saline 1000ml 1,000 ML IV SCH (08:56)
--- NOTE | 2019-05-20 14:44 | NUR ---
F/U (05/20): Pt has advanced diet to heart healthy starts dinner today. LBM 05/13. Will monitor pt's po intake. If suboptimal of nutrition intake, will suggest ONS for wound healing and meeting nutrition needs. pt is given Colace; however, patient refused today as documented. Will continue to monitor. Rec: 1. Continue heart healthy diet 2. [place] pt food preferences 3. Routine bowel care 4. Weekly wts Addendum: 05/20/19 at [address] Amended: Links added. Addendum: 05/20/19 at [address] PARUL Approrosa
--- NOTE | 2019-05-20 18:25 | NUR ---
Patient in room CICU 2013. I have received report and had the opportunity to ask questions and assume patient care.
[2019-05-20] MEDS: apixaban 2.5mg tablet PO SCH (19:58)
--- NOTE | 2019-05-20 21:16 | NUR ---
Problems reprioritized. Patient report given, questions answered & plan of care reviewed.
--- NOTE | 2019-05-20 22:00 | NUR ---
Patient in room PCU 3012. I have received report from Geeta PANDYA and had the opportunity to ask questions and assume patient care.
[2019-05-21] MEDS: HYDROcodone/acetaminophen 5mg/325mg tablet PO PRN ×3 (01:19→15:24)
--- NOTE | 2019-05-21 03:00 | NUR ---
pt refused 0300 vital signs
[2019-05-21] MEDS: oxyCODONE IR 5mg (immed. release) tablet PO PRN (03:37)
[2019-05-21 06:10] LABS: BASOPHILS % (AUTO) 0.3 % (0-1); EOSINOPHILS # (AUTO) 0.1 X10'3 (0-0.9); EOSINOPHILS % (AUTO) 0.4 % (0-6); HEMOGLOBIN 8.2 g/dl (14.0-17.9); LYMPHOCYTES # (AUTO) 0.7 X10'3 (1.1-4.8); MEAN CORPUSCULAR HEMOGLOBIN 30.9 PG (27.0-31.0); MEAN CORPUSCULAR HGB CONC 34.2 g/dL (33.0-36.5); MEAN CORPUSCULAR VOLUME 90.3 FL (78-98); MEAN PLATELET VOLUME 10.4 FL (7.4-10.4); MONOCYTES # (AUTO) 1.2 X10'3 (0-0.9); MONOCYTES % (AUTO) 8.1 % (2-12); NEUTROPHILS # (AUTO) 12.7 X10'3 (1.8-7.7); NEUTROPHILS % (AUTO) 86.2 % (42-75); PLATELET COUNT 98 X10'3 (140-440); RED BLOOD COUNT 2.65 X10'6 (4.70-6.10); RED CELL DISTRIBUTION WIDTH 16.4 % (11.5-14.5); WHITE BLOOD COUNT 14.7 X10'3 (4.5-11.0)
--- NOTE | 2019-05-21 06:29 | NUR ---
Problems reprioritized. Patient report given, questions answered & plan of care reviewed with Ely Norwood.
[2019-05-21 06:35] LABS: ANION GAP 5 (8-16); BLOOD UREA NITROGEN 12 MG/DL (7-18); BUN/CREATININE RATIO 8.2 (5.4-32.0); CALCIUM 7.7 MG/DL (8.5-10.1); CHLORIDE 91 MMOL/L (99-107); CREATININE 1.47 MG/DL (0.60-1.10); GLUCOSE 138 MG/DL (70-104); MAGNESIUM 1.6 MG/DL (1.5-2.4); PHOSPHORUS 1.3 MG/DL (2.3-4.5); POTASSIUM 3.7 MMOL/L (3.5-5.1); SODIUM 127 MMOL/L (135-145); TOTAL CARBON DIOXIDE 30.8 MMOL/L (24-32); eGFR 47 ML/MIN
[2019-05-21 06:36] LABS: ALBUMIN 2.5 G/DL (3.4-5.0)
[2019-05-21] MEDS: furosemide 20 MG/2 ML vial IV SCH ×3 (06:40→23:19)
--- NOTE | 2019-05-21 06:48 | NUR ---
Patient in room PCU 3012C. I have received report from Karely PANDYA and had the opportunity to ask questions and assume patient care.
[2019-05-21 07:00] VITALS: BP 115/78
--- NOTE | 2019-05-21 07:20 | NUR ---
Received in report from night nurse that right pedal pulse had not been able to be found, and left pedal pulse found only with doppler. This RN and RN Rere (orientee) assessed right away, found pedal pulses bilaterally with doppler.
[2019-05-21] MEDS: docusate sod 100mg capsule PO SCH ×2 (08:00→19:25)
[2019-05-21] MEDS: atorvastatin 20mg tablet PO SCH (08:02)
[2019-05-21] MEDS: clopidogrel 75mg tablet PO SCH (08:02)
[2019-05-21] MEDS: apixaban 2.5mg tablet PO SCH ×2 (08:03→19:25)
[2019-05-21] MEDS: aspirin 81mg tablet.DR PO SCH (08:03)
[2019-05-21] MEDS: amiodarone 200mg tablet PO SCH ×2 (08:03→19:25)
[2019-05-21] MEDS: pantoprazole 40mg Tablet.DR PO SCH (08:04)
--- NOTE | 2019-05-21 08:45 | NUR ---
Paged DR Martines regarding [facility] blood, he called back and said to leave michael in for now, and he will come look at it as well. PAGER ID: [phone] MESSAGE: Ely flanagan [phone]. RE Brooke Colon [id number]. No order for michael currently in place. Bright red blood in michael; shift lab technician stated was aware. Would you like to keep michael or have it pulled? Thank you!
[2019-05-21 11:00] VITALS: BP 131/86
--- NOTE | 2019-05-21 12:24 | NUR ---
Went to see patient with Dr Hurd. Asked about michael- DR Hurd said michael can stay in until day of patient discharge. Paged Dr Martines regarding michael order PAGER ID: [phone] MESSAGE: Ely flanagan [phone]. Brooke Osman [id number]. Dr Hurd wants michael to stay in patient until day of discharge. Would you like michael ordered as Protocol or Non-Protocol? Thank you!
--- NOTE | 2019-05-21 13:34 | NUR ---
Entered Protocol Michael order per Dr Martines. Agreed with Dr Hurd to NOT have michael pulled until day of patients discharge, if no michael complications occur. MD does not want urine to get into surgical wounds.
[2019-05-21] MEDS: ceFOXitin 2 GM ADDvantage bag 100 ML IV SCH ×2 (14:44→19:25)
--- NOTE | 2019-05-21 14:45 | NUR ---
Called report to Nathalia PANDYA. All questions answered. Patient will be admitted to room 354C.
[2019-05-21] MEDS ORDERED: magnesium hydroxide 30ml (MOM) UD suspension PO PRN (16:10)
--- NOTE | 2019-05-21 16:11 | NUR ---
Transferred patient to Surgical unit, room 354C. Tele switched to off floor tele. PCU floor tele returned to telephone clerks supervisor. All belongings and patient specific medications sent with patient. Patient assisted into bed, stable at transfer.
[2019-05-21] MEDS ORDERED: OXAZEpam 15mg capsule PO PRN (16:40)
--- NOTE | 2019-05-21 17:17 | NUR ---
Patient in room [facility]EW[facility] 354. I have received report from jordin crystal and had the opportunity to ask questions and assume patient care.
--- NOTE | 2019-05-21 17:23 | NUR ---
patient appears stable. wound vac drainage cannister changed on admit. no c/o pain
[2019-05-21 17:33] VITALS: BP 95/59
--- NOTE | 2019-05-21 18:49 | NUR ---
Problems reprioritized. Patient report given, questions answered & plan of care reviewed with azul crystal.
--- NOTE | 2019-05-21 19:03 | NUR ---
Patient in room [facility]EW[facility] 354. I have received report from Nathalia PANDYA and had the opportunity to ask questions and assume patient care.
[2019-05-21] MEDS: HYDROcodone/acetaminophen 10/325mg tab PO PRN (19:25)
[2019-05-21 20:38] VITALS: BP 98/60
[2019-05-22] VITALS (9 sets, daily range): BP systolic 92–130; BP diastolic 50–79
[2019-05-22] MEDS: ceFOXitin 2 GM ADDvantage bag 100 ML IV SCH ×3 (03:31→21:06)
[2019-05-22 05:53] LABS: BASOPHILS # (AUTO) 0.1 X10'3 (0-0.2); BASOPHILS % (AUTO) 0.8 % (0-1); EOSINOPHILS % (AUTO) 0.1 % (0-6); HEMATOCRIT 24.6 % (42.0-52.0); HEMOGLOBIN 8.5 g/dl (14.0-17.9); LYMPHOCYTES # (AUTO) 0.5 X10'3 (1.1-4.8); LYMPHOCYTES % (AUTO) 3.3 % (21-51); MEAN CORPUSCULAR HGB CONC 34.4 g/dL (33.0-36.5); MEAN CORPUSCULAR VOLUME 90.1 FL (78-98); MEAN PLATELET VOLUME 10.8 FL (7.4-10.4); MONOCYTES # (AUTO) 0.8 X10'3 (0-0.9); MONOCYTES % (AUTO) 5.3 % (2-12); NEUTROPHILS # (AUTO) 13.9 X10'3 (1.8-7.7); NEUTROPHILS % (AUTO) 90.5 % (42-75); PLATELET COUNT 115 X10'3 (140-440); RED BLOOD COUNT 2.73 X10'6 (4.70-6.10); RED CELL DISTRIBUTION WIDTH 16.8 % (11.5-14.5); WHITE BLOOD COUNT 15.3 X10'3 (4.5-11.0)
[2019-05-22] MEDS: furosemide 20 MG/2 ML vial IV SCH (06:00)
[2019-05-22 06:10] LABS: ALBUMIN 2.4 G/DL (3.4-5.0); ANION GAP 7 (8-16); BLOOD UREA NITROGEN 13 MG/DL (7-18); BUN/CREATININE RATIO 5.7 (5.4-32.0); CALCIUM 7.5 MG/DL (8.5-10.1); CHLORIDE 91 MMOL/L (99-107); CREATININE 2.27 MG/DL (0.60-1.10); GLUCOSE 145 MG/DL (70-104); MAGNESIUM 1.9 MG/DL (1.5-2.4); PHOSPHORUS 1.8 MG/DL (2.3-4.5); POTASSIUM 3.4 MMOL/L (3.5-5.1); SODIUM 127 MMOL/L (135-145); TOTAL CARBON DIOXIDE 29.1 MMOL/L (24-32); eGFR 29 ML/MIN
--- NOTE | 2019-05-22 06:30 | NUR ---
Patient in room ICU 2042. I have received report from Corrine PANDYA and had the opportunity to ask questions and assume patient care.
--- NOTE | 2019-05-22 06:42 | NUR ---
Problems reprioritized. Patient report given, questions answered & plan of care reviewed with Jonathan RN.
[2019-05-22] MEDS: pantoprazole 40mg Tablet.DR PO SCH (07:48)
[2019-05-22] MEDS: clopidogrel 75mg tablet PO SCH (07:49)
[2019-05-22] MEDS: docusate sod 100mg capsule PO SCH ×2 (07:49→21:06)
[2019-05-22] MEDS: apixaban 2.5mg tablet PO SCH ×2 (07:50→21:07)
[2019-05-22] MEDS: atorvastatin 20mg tablet PO SCH (07:50)
[2019-05-22] MEDS: amiodarone 200mg tablet PO SCH ×2 (07:50→21:06)
[2019-05-22] MEDS: aspirin 81mg tablet.DR PO SCH (07:51)
[2019-05-22] MEDS ORDERED: ringers solution, lacted 1,000 ML IV SCH (09:20)
[2019-05-22 10:36] LABS: PLATELET ESTIMATE DECREASED
[2019-05-22 10:38] LABS: POLYCHROMASIA 1+
[2019-05-22 10:39] LABS: ACANTHOCYTES FEW; ANISOCYTOSIS 1+; SCHISTOCYTES FEW; TARGET CELLS 1+
[2019-05-22] MEDS: oxyCODONE IR 5mg (immed. release) tablet PO PRN ×3 (10:39→22:43)
[2019-05-22 10:41] LABS: BURR CELLS 1+; ELLIPTOCYTES 1+; SPHEROCYTES 1+; TEAR DROP CELLS 1+
[2019-05-22 10:42] LABS: POIKILOCYTOSIS 2+
[2019-05-22] MEDS ORDERED: albumin (human) 25% 100 ML IV solution IV SCH (11:40)
[2019-05-22] MEDS ORDERED: furosemide 40mg/4ml inj IV ONE (16:55)
[2019-05-22] MEDS ORDERED: furosemide 40mg/4ml inj ONE (16:55)
--- NOTE | 2019-05-22 17:00 | NUR ---
patient arrived from floor, rapid response. patient given 40mg lasix and placed on bipap 100%, sats 98%. BP and heart rate stable. patient temp 35.5 warm blanket placed on patient. patient bilateral lower extremity pulses doppler. patient pain 9/10 gave OXY IR.
--- NOTE | 2019-05-22 17:30 | NUR ---
1630 went in to check patient upon a tech reporting unable to get 02 sat on patient and seems to be having difficulty breathing. upon entering room patient was found short of breath, at this time 02 increased to 5 liter while trying to obtain a pulse ox reading. 1640 Rapid was called after notifying charge when accurate pulse ox was still not able to be read, bp 130's over 70's pulse of 71. 1645 Patient went into afibb according to tele report and 02 sats continued seem inaccurate at 12. Patient physican was called and order for stat chest xray and lasix. 1715 Patient was transported to ICU in respiratory distress.
--- NOTE | 2019-05-22 18:57 | NUR ---
184..Patient in room ICU 2042. I have received report from Percy PANDYA and had the opportunity to ask questions and assume patient care.
[2019-05-22 20:45] LABS: ABG BASE EXCESS 3.8 mmol/L (-2.0-3.0); ABG HCO3 29.1 mmol/L (22.0-26.0); ABG OXYGEN SATURATION 98.3 % (95-98); ABG PCO2 (T) 46.3 mmHg (35.0-45.0); ABG PH (T) 7.411 (7.350-7.450); ABG PO2 (T) 132.5 mmHg (83-108); ALLEN'S TEST Positive; FCOHb 0.1 % (0.5-1.5); FMetHb 0.2 % (0.3-1.12); PATIENT TEMPERATURE 36.1; RESPIRATORY RATE 16 b/min; RESPIRATORY RATE (OBSERVED) 21 b/min; TOTAL HEMOGLOBIN 7.1 G/dl (14.0-17.9)
[2019-05-22] MEDS: lactobacillus rhamnosus 10,000 MMU CELLS/CAPSULE PO SCH (21:07)
[2019-05-22] MEDS: HYDROcodone/acetaminophen 10/325mg tab PO PRN (21:07)
--- NOTE | 2019-05-22 23:13 | NUR ---
1999..Assessment as noted, pt noncompliant with staying positioned off backside, despite nsg efforts to keep him repositioned, medicated for complaints of incisional pain with good effect.
[2019-05-23] VITALS (17 sets, daily range): BP systolic 90–124; BP diastolic 44–77
--- NOTE | 2019-05-23 00:10 | NUR ---
0000..Remains noncompliant with repositioning, and now is noncompliant with the bipap, off bipap sats drop into the 70s, with slow recovery. No other changes noted.
[2019-05-23] MEDS: ceFOXitin 2 GM ADDvantage bag 100 ML IV SCH ×3 (02:11→15:04)
--- NOTE | 2019-05-23 04:12 | NUR ---
0400..Remains noncompliant with plan of care, and bipap use, no other changes noted.
[2019-05-23 04:43] LABS: BASOPHILS # (AUTO) 0.1 X10'3 (0-0.2); BASOPHILS % (AUTO) 0.5 % (0-1); EOSINOPHILS % (AUTO) 0.2 % (0-6); LYMPHOCYTES # (AUTO) 0.6 X10'3 (1.1-4.8); LYMPHOCYTES % (AUTO) 3.9 % (21-51); MEAN CORPUSCULAR HEMOGLOBIN 30.5 PG (27.0-31.0); MEAN CORPUSCULAR HGB CONC 33.3 g/dL (33.0-36.5); MEAN CORPUSCULAR VOLUME 91.4 FL (78-98); MEAN PLATELET VOLUME 11.5 FL (7.4-10.4); MONOCYTES # (AUTO) 0.7 X10'3 (0-0.9); MONOCYTES % (AUTO) 4.7 % (2-12); NEUTROPHILS # (AUTO) 13.3 X10'3 (1.8-7.7); NEUTROPHILS % (AUTO) 90.7 % (42-75); PLATELET COUNT 107 X10'3 (140-440); RED BLOOD COUNT 2.31 X10'6 (4.70-6.10); RED CELL DISTRIBUTION WIDTH 16.9 % (11.5-14.5); WHITE BLOOD COUNT 14.6 X10'3 (4.5-11.0)
[2019-05-23 04:54] LABS: ALBUMIN 2.5 G/DL (3.4-5.0); ANION GAP 5 (8-16); BLOOD UREA NITROGEN 22 MG/DL (7-18); BUN/CREATININE RATIO 7.6 (5.4-32.0); CALCIUM 7.5 MG/DL (8.5-10.1); CHLORIDE 91 MMOL/L (99-107); CREATININE 2.89 MG/DL (0.60-1.10); GLUCOSE 210 MG/DL (70-104); MAGNESIUM 2.3 MG/DL (1.5-2.4); PHOSPHORUS 2.6 MG/DL (2.3-4.5); POTASSIUM 3.6 MMOL/L (3.5-5.1); SODIUM 128 MMOL/L (135-145); TOTAL CARBON DIOXIDE 31.6 MMOL/L (24-32); eGFR 22 ML/MIN
[2019-05-23 04:55] LABS: HEMATOCRIT 21.1 % (42.0-52.0)
--- NOTE | 2019-05-23 05:21 | NUR ---
0515..Pt with increasing shortness of breath, FiO2 increased to 80%, remains noncompliant with bipap, pulling at mask, repositioning mask, and taking mask off. Importance of bipap and mask explained multiple times, to no avail.
--- NOTE | 2019-05-23 05:36 | NUR ---
0530..Attempted to contact , with lab values and increased need od oxygen. [facility] (critical care) notified, no orders at this time.
[2019-05-23] MEDS: oxyCODONE IR 5mg (immed. release) tablet PO PRN ×2 (05:48→11:47)
--- NOTE | 2019-05-23 05:59 | NUR ---
0545..Requested and given medication for complaints of pain, 02/22. No other changes noted.
--- NOTE | 2019-05-23 06:21 | NUR ---
0620..Problems reprioritized. Patient report given, questions answered & plan of care reviewed with Mauricio PANDYA.
--- NOTE | 2019-05-23 06:27 | NUR ---
late... updated on pt status, orders received.
--- NOTE | 2019-05-23 06:30 | NUR ---
Pt. report received from MUMTAZ Fallon
[2019-05-23 06:49] LABS: LARGE PLATELETS FEW; PLATELET ESTIMATE DECREASED
[2019-05-23] MEDS ORDERED: furosemide 40mg/4ml inj IV SCH (08:00)
--- NOTE | 2019-05-23 08:14 | NUR ---
I have reviewed and agree with all medications administered and interventions performed by [facility] Student Sly Hooper Addendum: 05/23/19 at 0815 by Christie Bella RT Amended: Links added.
[2019-05-23] MEDS: pantoprazole 40mg Tablet.DR PO SCH (11:25)
[2019-05-23] MEDS: lactobacillus rhamnosus 10,000 MMU CELLS/CAPSULE PO SCH (11:26)
[2019-05-23] MEDS: docusate sod 100mg capsule PO SCH (11:26)
[2019-05-23] MEDS: clopidogrel 75mg tablet PO SCH (11:26)
[2019-05-23] MEDS: amiodarone 200mg tablet PO SCH (11:26)
[2019-05-23] MEDS: apixaban 2.5mg tablet PO SCH (11:26)
[2019-05-23] MEDS: atorvastatin 20mg tablet PO SCH (11:26)
--- NOTE | 2019-05-23 15:38 | NUR ---
F/U (05/23): Pt is transferred back to the unit yesterday s/p rapid response, hypoxemia. Chest-X-Ray showed pt to have pulmonary edema, small bilateral pleural effusion. Pt is on full-face bipap. Per MD note, pt may have aspirated,and have difficulties swallowing pills the other day. Pt is confused per bedside RN. Documented po intake has an avg. of 25-50%. Pt would likely benefit with ONS to increase protein needs. In view of possible aspiration, pt would benefit from BSS discussed with MD and RN at rounds, MD agrees pt to receive BSS, will follow speech therapist's texture suggestion and monitor for liquid recommendation prior to starting ONS. During rounds, MD discussed possible corpak. It patient unable to meet needs while on bipap would benefit from tube feeding. LB 05/20. Will continue to monitor. Recommendations: 1. Continue heart healthy diet, texture per SMT OPERATOR recs. 2. Monitor for ONS pending speech therapist recommendation. 3. Routine bowel care 4. Weekly wts Addendum: 05/23/19 at [address] PARUL agree with brand marketing intern note Addendum: 05/23/19 at [address] Amended: Links added.
--- NOTE | 2019-05-23 16:15 | NUR ---
Notified Dr. Mejia that patient O2 saturation was dropping, skin was cool, patient stated "let me , I want to ." Received orders to change code status to DNR.
[2019-05-23 16:41] LABS: ABG BASE EXCESS -7.2 mmol/L (-2.0-3.0); ABG HCO3 21.5 mmol/L (22.0-26.0); ABG OXYGEN SATURATION 77.1 % (95-98); ABG PCO2 (T) 62.9 mmHg (35.0-45.0); ABG PH (T) 7.151 (7.350-7.450); ABG PO2 (T) 56.4 mmHg (83-108); FCOHb 0.5 % (0.5-1.5); FMetHb 0.2 % (0.3-1.12); FO2Hb 76.6 % (94-100); TOTAL HEMOGLOBIN 8.1 G/dl (14.0-17.9)
--- NOTE | 2019-05-23 18:51 | NUR ---
Patient asystolic at 1706
== END 2019-05-23 17:06 | disposition expired | DRG 252 ==
LOC: ER 17:35 → ED HOLD 05-13 01:30 → SUR 3N 05-13 03:00 → CMPBEDREQ 05-13 03:22 → CICU 2S 05-17 16:42 → PCU 3S 05-20 21:30 → SUR 3N 05-21 16:00 → ICU 2S 05-22 17:05
PROVIDERS: ADMIT Hospitalist; ATTEND Internal Medicine Critical Care Medicine
PROC: B4201ZZ Computerized Tomography (CT Scan) of Abdominal Aorta using Low Osmolar Contrast (ICD-10-PCS; 2019-05-12)
PROC: B42C1ZZ Computerized Tomography (CT Scan) of Pelvic Arteries using Low Osmolar Contrast (ICD-10-PCS; 2019-05-12)
PROC: B42H1ZZ Computerized Tomography (CT Scan) of Bilateral Lower Extremity Arteries using Low Osmolar Contrast (ICD-10-PCS; 2019-05-12)
PROC: B4211ZZ Computerized Tomography (CT Scan) of Celiac Artery using Low Osmolar Contrast (ICD-10-PCS; 2019-05-12)
PROC: B42H1ZZ Computerized Tomography (CT Scan) of Bilateral Lower Extremity Arteries using Low Osmolar Contrast (ICD-10-PCS; 2019-05-12)
PROC: 047D3DZ Dilation of Left Common Iliac Artery with Intraluminal Device, Percutaneous Approach (ICD-10-PCS; principal; 2019-05-14)
PROC: B4101ZZ Fluoroscopy of Abdominal Aorta using Low Osmolar Contrast (ICD-10-PCS; 2019-05-14)
PROC: B41C1ZZ Fluoroscopy of Pelvic Arteries using Low Osmolar Contrast (ICD-10-PCS; 2019-05-14)
PROC: B41G1ZZ Fluoroscopy of Left Lower Extremity Arteries using Low Osmolar Contrast (ICD-10-PCS; 2019-05-14)
PROC: 4A02XM4 Measurement of Cardiac Total Activity, External Approach (ICD-10-PCS; 2019-05-16)
PROC: 3E033HZ Introduction of Radioactive Substance into Peripheral Vein, Percutaneous Approach (ICD-10-PCS; 2019-05-16)
PROC: 04CK0ZZ Extirpation of Matter from Right Femoral Artery, Open Approach (ICD-10-PCS; 2019-05-17)
PROC: 04CL0ZZ Extirpation of Matter from Left Femoral Artery, Open Approach (ICD-10-PCS; 2019-05-17)
PROC: 04UK0JZ Supplement Right Femoral Artery with Synthetic Substitute, Open Approach (ICD-10-PCS; 2019-05-17)
PROC: 04UL0JZ Supplement Left Femoral Artery with Synthetic Substitute, Open Approach (ICD-10-PCS; 2019-05-17)
PROC: 041K0JH Bypass Right Femoral Artery to Right Femoral Artery with Synthetic Substitute, Open Approach (ICD-10-PCS; 2019-05-17)
PROC: 0KXR0ZZ Transfer Left Upper Leg Muscle, Open Approach (ICD-10-PCS; 2019-05-17)
PROC: 0KXQ0ZZ Transfer Right Upper Leg Muscle, Open Approach (ICD-10-PCS; 2019-05-17)
PROC: 30233R1 Transfusion of Nonautologous Platelets into Peripheral Vein, Percutaneous Approach (ICD-10-PCS; 2019-05-17)
PROC: 5A09357 Assistance with Respiratory Ventilation, Less than 24 Consecutive Hours, Continuous Positive Airway Pressure (ICD-10-PCS; 2019-05-22)
DX: I70.213 Atherosclerosis of native arteries of extremities with intermittent claudication, bilateral legs (principal); J96.01 Acute respiratory failure with hypoxia; J69.0 Pneumonitis due to inhalation of food and vomit; Z68.1 Body mass index [BMI] 19.9 or less, adult; I13.0 Hypertensive heart and chronic kidney disease with heart failure and stage 1 through stage 4 chronic kidney disease, or unspecified chronic kidney disease; I74.5 Embolism and thrombosis of iliac artery; N17.9 Acute kidney failure, unspecified; E87.1 Hypo-osmolality and hyponatremia; J91.8 Pleural effusion in other conditions classified elsewhere; I50.1 Left ventricular failure, unspecified; I77.9 Disorder of arteries and arterioles, unspecified; F17.200 Nicotine dependence, unspecified, uncomplicated; I77.1 Stricture of artery; I50.810 Right heart failure, unspecified; D64.9 Anemia, unspecified; E78.00 Pure hypercholesterolemia, unspecified; E78.5 Hyperlipidemia, unspecified; R31.9 Hematuria, unspecified; I50.9 Heart failure, unspecified; F12.90 Cannabis use, unspecified, uncomplicated; F17.210 Nicotine dependence, cigarettes, uncomplicated; I99.8 Other disorder of circulatory system; J44.9 Chronic obstructive pulmonary disease, unspecified; K86.89 Other specified diseases of pancreas; Z60.2 Problems related to living alone; N18.9 Chronic kidney disease, unspecified; Z87.11 Personal history of peptic ulcer disease; Z79.899 Other long term (current) drug therapy; Z72.89 Other problems related to lifestyle
CPT/HCPCS: 36415; 36600; 37221; 71045; 73706; 74174; 76937; 78452; 80048; 80053; 80061; 80076; 81001; 82803; 82948; 83605; 83735; 83880; 84100; 84484; 85018; 85025; 85610; 85730; 86885; 86900; 86901; 87040; 87081; 87088; 93005; 93306; 93308; 93922; 93926; 94660; 94760; 96365; 96366; 96375; 96376; 97110; 97116; 97161; 97530; 97535; 99152; 99153; 99285; A4618; A6258; A6455; A7000; A9500; C1725; C1758; C1768; C1769; C1876; C1894; G0378; J0280; J0282; J0360; J0690; J0694; J1644; J1940; J2001; J2175; J2250; J2270; J2597; J2704; J2720; J2785; J3010; J3475; J3490; J7030; J7040; J7120; P9035; P9045; P9047; Q9967